=== PATIENT | male | born 1975 | race Two or more races ===

== ENCOUNTER 2016-11-22 18:58 | Emergency (ER) | payer SELFPAY ==
[~2016-11-22] VITALS: Ht 154.9 cm; Wt 77.1 kg
[2016-11-22 19:14] VITALS: BP 135/81
== END 2016-11-22 23:00 | disposition left against medical advice (07) ==
LOC: EDUNIT# 18:58 → ER 19:07
DX: F43.9 Reaction to severe stress, unspecified (principal); Z53.21 Procedure and treatment not carried out due to patient leaving prior to being seen by health care provider

== ENCOUNTER 2016-11-24 17:45 | Emergency (ER) | payer SELFPAY ==
[~2016-11-24] VITALS: Ht 170.2 cm; Wt 90.7 kg
[2016-11-24 17:56] VITALS: BP 157/86
== END 2016-11-25 00:10 | disposition left against medical advice (07) ==
LOC: EDBD 17:45 → ER 17:54
DX: R53.1 Weakness (principal); Z53.21 Procedure and treatment not carried out due to patient leaving prior to being seen by health care provider
CPT/HCPCS: 93005

== ENCOUNTER 2016-12-02 14:23 | Emergency (ER) | payer OTHER ==
[~2016-12-02] VITALS: Ht 170.2 cm; Wt 81.6 kg
[2016-12-02 14:27] VITALS: BP 116/77
== END 2016-12-02 16:30 | disposition left against medical advice (07) ==
LOC: ER 14:27
DX: M79.641 Pain in right hand (principal); Z53.21 Procedure and treatment not carried out due to patient leaving prior to being seen by health care provider

== ENCOUNTER 2016-12-03 09:36 | Emergency (ER) | payer OTHER ==
[~2016-12-03] VITALS: Ht 170.2 cm; Wt 81.6 kg
[2016-12-03 09:56] VITALS: BP 121/80
== END 2016-12-03 10:19 | disposition home or self-care (01) ==
LOC: ER 09:38
DX: S60.521A Blister (nonthermal) of right hand, initial encounter (principal); X58.XXXA Exposure to other specified factors, initial encounter; Y93.89 Activity, other specified; Y99.8 Other external cause status; Y92.89 Other specified places as the place of occurrence of the external cause
CPT/HCPCS: 10060